=== PATIENT | female | born 1975 | race Caucasian/White ===

== ENCOUNTER → 2021-04-24 | Day surgery (SDC) | payer OTHER ==
[~2021-04-24] MED LIST: CINNAMON500 MG PO; CLARITIN10 MG PO; COLACE100 MG PO; CYANOCOBAL1000 MCG/1 INJ; IBUPROFEN800 MG PO; LEVOTHYROXINE112 MCG PO; MEDROXYPROGESTE10 MG PO; PERCOCET 5/325 T1 EA PO
[2021-04-24 07:41] LABS: HEMOGLOBIN 10.9 gm/dl (12.3-15.3); RED BLOOD COUNT 4.38 M/UL (4.00-5.10)
== END | disposition home or self-care (01) ==
LOC: OR 06:26
PROVIDERS: Obstetrics & Gynecology
PROC: 0U5B8ZZ Destruction of Endometrium, Via Natural or Artificial Opening Endoscopic (ICD-10-PCS; principal; 2021-04-24 07:30)
PROC: 0UDB7ZZ Extraction of Endometrium, Via Natural or Artificial Opening (ICD-10-PCS; 2021-04-24 07:30)
DX: N93.9 Abnormal uterine and vaginal bleeding, unspecified (principal); N92.0 Excessive and frequent menstruation with regular cycle; E03.9 Hypothyroidism, unspecified; F17.210 Nicotine dependence, cigarettes, uncomplicated; Z88.2 Allergy status to sulfonamides; Z79.899 Other long term (current) drug therapy; Z98.51 Tubal ligation status
CPT/HCPCS: 36415; 81001; 85025; 93005; J0690; J1100; J1885; J2001; J2250; J2405; J2704; J3010; J7120

== ENCOUNTER → 2022-07-03 | Outpatient (CLI) | payer OTHER | LOC: ECHO 11:32 | DX: R60.0 Localized edema (principal) | CPT/HCPCS: ECHO; 93306 ==

== ENCOUNTER → 2022-08-14 | Outpatient (CLI) | payer OTHER | LOC: KOH-I 15:35 | DX: R60.0 Localized edema (principal) | CPT/HCPCS: 93970 ==